=== PATIENT | male | born 1985 | race Hispanic/Latino ===

== ENCOUNTER → 2017-11-23 | Emergency (ER) | payer BC ==
[~2017-11-23] VITALS: Ht 172.7 cm; Wt 108.9 kg
[2017-11-23 21:24] VITALS: BP 128/78
== END | disposition home or self-care (01) ==
LOC: FSED 20:33
DX: R50.9 Fever, unspecified (principal); R05 Cough; R11.2 Nausea with vomiting, unspecified; R51 Headache
CPT/HCPCS: 71020; 87400; 99283

== ENCOUNTER 2022-07-01 22:02 | Emergency (ER) | payer OTHER ==
[~2022-07-01] VITALS: Ht 172.7 cm; Wt 112.5 kg
[2022-07-01] MEDS ORDERED: METHOCARBAMOL 500 MG TAB PO ONE (22:30)
[2022-07-01] MEDS ORDERED: KETOROLAC TROMETHAMINE 60 MG/2 ML VIAL IM ONE (22:30)
[2022-07-01] MEDS ORDERED: CYCLOBENZAPRINE HCL 10 MG TAB PO ONE (22:30)
[2022-07-01] MEDS ORDERED: KETOROLAC TROMETHAMINE 60 MG/2 ML VIAL ONE (22:44)
[2022-07-01] MEDS ORDERED: CYCLOBENZAPRINE HCL 10 MG TAB ONE (22:44)
[2022-07-01] MEDS ORDERED: METHOCARBAMOL500 MG PO (22:47)
[2022-07-01] MEDS ORDERED: NAPROSYN500 MG PO (22:47)
[2022-07-02 00:16] VITALS: BP 140/90
== END 2022-07-02 00:16 | disposition home or self-care (01) ==
LOC: FSED 22:19
DX: S16.1XXA Strain of muscle, fascia and tendon at neck level, initial encounter (principal); S56.811A Strain of other muscles, fascia and tendons at forearm level, right arm, initial encounter; S20.212A Contusion of left front wall of thorax, initial encounter; S60.222A Contusion of left hand, initial encounter; S80.12XA Contusion of left lower leg, initial encounter; V43.52XA Car driver injured in collision with other type car in traffic accident, initial encounter; Y92.488 Other paved roadways as the place of occurrence of the external cause
CPT/HCPCS: 71046; 72040; 73060; 73090; 73130; 73590; 96372; 99283; J1885